=== PATIENT | male | born 1980 | race Caucasian/White ===

== ENCOUNTER 2017-05-13 18:56 | Emergency (ER) | payer SELFPAY ==
[2017-05-13 19:06] VITALS: BMI 4865.0
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
[2017-05-13 22:26] VITALS: BP 137/77
== END 2017-05-13 22:20 | disposition home or self-care (01) ==
LOC: ER 19:10
DX: S21.93XA Puncture wound without foreign body of unspecified part of thorax, initial encounter (principal); W29.4XXA Contact with nail gun, initial encounter; Y92.9 Unspecified place or not applicable
CPT/HCPCS: 71020; 99282

== ENCOUNTER 2021-07-01 16:26 | Observation (INO) ==
[2021-07-01] MEDS ORDERED: PHARMACY CONSULT - VANCOMYCIN XX SCH (19:00)
[2021-07-01] MEDS: NS 1,000 ML IV 1,000 ML IV SCH (20:01)
[2021-07-01 21:11] VITALS: BMI 28.7
[2021-07-01] MEDS ORDERED: TORADOL 30 MG VIAL ONE (21:16)
[2021-07-01] MEDS ORDERED: TYLENOL 325 MG TAB PO ONE (21:16)
[2021-07-01] MEDS: TORADOL 30 MG VIAL IVP PRN (21:22)
[2021-07-01] MEDS: TYLENOL 325 MG TAB PO PRN (21:23)
[2021-07-01] MEDS ORDERED: VANCOMYCIN IV *PREMIX 1.75 G/350 ML BAG 1.75 G/350 ML PIGGYBACK IV ONE (22:00)
[2021-07-01 22:50] LABS: BASOPHILS # (AUTO) 0.1 X10^3/uL (0.0-0.1); BASOPHILS % (AUTO) 0.5 % (0.2-1.0); EOSINOPHILS % (AUTO) 0.3 % (0.9-2.9); HEMATOCRIT 36.2 % (42.0-54.0); HEMOGLOBIN 12.4 g/dL (13.5-18.0); LYMPHOCYTES # (AUTO) 2.8 X10^3/uL (1.3-2.9); LYMPHOCYTES % (AUTO) 15.8 % (21.0-51.0); MEAN CORPUSCULAR HEMOGLOBIN 30.1 pg (27.0-34.0); MEAN CORPUSCULAR HGB CONC 34.2 g/dL (33.0-35.0); MEAN PLATELET VOLUME 11.1 fL (7.4-11.0); MONOCYTES # (AUTO) 1.2 x10^3/uL (0.3-0.8); MONOCYTES % (AUTO) 6.7 % (0.0-13.0); NEUTROPHILS # (AUTO) 13.8 x10^3/uL (2.2-4.8); NEUTROPHILS % (AUTO) 76.7 % (42.0-75.0); RED BLOOD COUNT 4.11 X10^6/uL (4.7-6.0)
[2021-07-01 23:02] LABS: ALANINE AMINOTRANSFERASE 40 Units/L (12-78); ALBUMIN 3.4 g/dL (3.4-5.0); ALKALINE PHOSPHATASE 72 Units/L (46-116); ASPARTATE AMINO TRANSFERASE 26 Units/L (15-37); BLOOD UREA NITROGEN 17 mg/dL (7-18); CALCIUM 8.1 mg/dL (8.5-10.1); CARBON DIOXIDE 24.9 mmol/L (21-32); CHLORIDE 100 mmol/L (98-107); COR NA(FOR HYPERGLY) 132 mmol/L (136-145); CREATININE 1.39 mg/dL (0.70-1.30); SODIUM 131 mmol/L (136-145); TOTAL PROTEIN 7.6 g/dL (6.4-8.2); eGFR NON BLACK RACES 60 (>60)
[2021-07-01 23:46] LABS: BILIRUBIN,URINE NEGATIVE (NEGATIVE); BLOOD/HEMOGLOBIN,URINE 1+ (NEGATIVE); GLUCOSE, URINE NEGATIVE (NEGATIVE); KETONES,URINE NEGATIVE (NEGATIVE); LEUKOCYTE ESTERASE ,URINE NEGATIVE (NEGATIVE); NITRITES,URINE NEGATIVE (NEGATIVE); PROTEIN,URINE 1+ (NEGATIVE); UROBILINOGEN,URINE NORMAL (NORMAL)
[2021-07-01 23:49] LABS: APPEARANCE,URINE CLEAR (CLEAR); BACTERIA,URINE NEGATIVE /HPF (NEGATIVE); COLOR,URINE YELLOW (YELLOW); RBC,URINE NONE SEEN /HPF (0-3); SQUAMOUS EPITHELIAL CELL,UR RARE /HPF (NEGATIVE)
[2021-07-02] MEDS: TYLENOL 325 MG TAB PO PRN ×2 (05:33→14:50)
[2021-07-02 06:24] LABS: BASOPHILS % (AUTO) 0.2 % (0.2-1.0); EOSINOPHILS % (AUTO) 0.3 % (0.9-2.9); HEMATOCRIT 32.7 % (42.0-54.0); HEMOGLOBIN 11.1 g/dL (13.5-18.0); LYMPHOCYTES # (AUTO) 1.8 X10^3/uL (1.3-2.9); MEAN CORPUSCULAR HEMOGLOBIN 29.9 pg (27.0-34.0); MEAN CORPUSCULAR VOLUME 87.8 fL (80.0-100.0); MEAN PLATELET VOLUME 10.1 fL (7.4-11.0); MONOCYTES # (AUTO) 1.1 x10^3/uL (0.3-0.8); MONOCYTES % (AUTO) 6.9 % (0.0-13.0); NEUTROPHILS # (AUTO) 13.5 x10^3/uL (2.2-4.8); NEUTROPHILS % (AUTO) 81.6 % (42.0-75.0); RED BLOOD COUNT 3.73 X10^6/uL (4.7-6.0); RED CELL DISTRIBUTION WIDTH 13.3 % (11.6-16.5); WHITE BLOOD COUNT 16.5 X10^3/uL (3.6-10.0)
[2021-07-02 06:37] LABS: ALANINE AMINOTRANSFERASE 47 Units/L (12-78); ALBUMIN 2.8 g/dL (3.4-5.0); ALKALINE PHOSPHATASE 77 Units/L (46-116); ASPARTATE AMINO TRANSFERASE 36 Units/L (15-37); BLOOD UREA NITROGEN 13 mg/dL (7-18); CALCIUM 7.9 mg/dL (8.5-10.1); CARBON DIOXIDE 26.7 mmol/L (21-32); CHLORIDE 104 mmol/L (98-107); COR CA(FOR HYPOALB) 8.9 mg/dL (8.5-10.1); COR NA(FOR HYPERGLY) 139 mmol/L (136-145); CREATININE 1.19 mg/dL (0.70-1.30); SODIUM 138 mmol/L (136-145); TOTAL PROTEIN 6.7 g/dL (6.4-8.2); eGFR NON BLACK RACES > 60 (>60)
[2021-07-02] MEDS: NICOTINE PATCH TD SCH (08:08)
[2021-07-02] MEDS: VANCOMYCIN IV *PREMIX 1.25 G/250 ML BAG 1.25 G/250 ML PIGGYBACK IV SCH ×2 (08:08→21:07)
--- NOTE | 2021-07-02 08:39 | DR.H&P ---
H&P - History & Physical for Day of: H&P Date: 07/01/21 - Chief Complaint Chief Complaint: ABSCESS TO RIGHT INNER THIGH, FEVER, CHILLS, NAUSEA - History of Present Illness History of Present Illness: PT IS 40 WM DIRECT ADMIT FROM DR KRISHNAMURTHY OFFICE WITH CO ABSCESS TO RIGHT UPPER THIGH WITH REDNESS INTO GROIN AND DOWN RIGHT THIGH, DRAINING PURULENT DC AND FEVER 101.2 IN OFFICE. PT REPORTS "CYST" STARTED LAST WEDNESDAY AND DAINING "PUS". PT HAS BEEN ON PO CLINDAMYCIN AND AMOXIL FOR DENTAL INFECTION. PT REPORTS HE HAD TOP TEETH PULLED WITH DENTURE PLATE IN PLACE ON WEDNESDAY, MINIMAL SWELLING. PT HAS PMH OF OPIOID DEPENDENCE IN REMISSION, ON S UBUTEX. PT ADMITTED FOR TREATMENT OF ACUTE ILLNESS. - Past Medical History Past Medical History: Kidney Stones - Past Surgical History Surgical History: No History - Family History Family Medical History: Cancer - Social History Does patient currently use any type of tobacco product: Yes Have you used tobacco products in the last 12 months: Yes Type of Tobacco Use: Cigarettes How many years tobacco product used: 8 Does any household member use tobacco: Yes Alcohol Use: None Drug Use: None Prescription drug monitoring program results: PDMP reviewed and no concerns identified - Medications Home Medications: No Known Drug Allergies Allergy (Verified 08/18/19 07:15) CONTINUE taking the following medications amoxicillin 500 mg PO Q6H 07/01/21 [History] ibuprofen 800 mg PO Q8H PRN 07/01/21 [History] latanoprost 1 drp OPHTHALMIC (EYE) DAILY 07/01/21 [History] - Review of Systems Constitutional: Fever, Chills, Malaise Eyes: No Symptoms Reported ENT: Other (UPPER PLATE IN PLACE) Respiratory: No Symptoms Reported Cardiovascular: No Symptoms Reported Gastrointestinal: Nausea Genitourinary: No Symptoms Reported Musculoskeletal: Leg Pain Skin: Wound Neurological: No Symptoms Reported - Physical Exam Vital Signs: Temperature 99.8 F Pulse Rate [Left Radial] 94 Respiratory Rate 19 Blood Pressure [Left Arm] 119/59 O2 Sat by Pulse Oximetry 95 Oriented: Normal Eyes: Normal Ear: Normal Nose: Normal Throat: Normal Respiratory: Clear Throughout Cardiovascular: Normal : Normal Auscultation: Bowel Sounds: Normal Palpation: Normal Tenderness: Normal Skin: Red, Tender, Hot, Wound (LARGE AREA OF REDNESS TO RIGHT UPPER THIGH, INNER THIGH INTO GROIN AND ABSCESS FORMATION WITH PURULENT DC) Musculoskeletal: Right, Leg Psychiatric: Anxiety Affect: Anxious Speech Pattern: Clear, Appropriate - Assessment/Plan (1) Cellulitis of right thigh Status: Acute Plan: ADMIT, WOUND AND BLOOD CULTURES ON ADMISSION. IV HYDRATION, FEVER CONTROL. PAIN CONTROL, IV VANCOMYCIN. VERIFY HOME MEDICATION (2) Dehydration with hyponatremia Status: Acute (3) Fever Status: Acute - Allergies Allergies/Adverse Reactions: Allergies Allergy/AdvReac Type Severity Reaction Status Date / Time No Known Drug Allergies Allergy Verified 08/18/19 07:15
[2021-07-02] MEDS: NS 1,000 ML IV 1,000 ML IV SCH ×3 (08:59→23:49)
[2021-07-02] MEDS ORDERED: VANCOMYCIN HCL 1 G in D5W 250 ML IV 250 ML IV SCH (09:00)
[2021-07-02] MEDS: XALATAN OP SCH (09:17)
[2021-07-02] MEDS: SUBOXONE TAB SL SCH ×3 (10:01→21:07)
[2021-07-02] MEDS: TORADOL 30 MG VIAL IVP PRN (10:08)
--- NOTE | 2021-07-02 13:13 | PCM.PROG ---
Progress Note - Subjective Subjective: Patient was admitted as per HPI. Patient reports minimal improvement. Patient receiving IV abx, cultures pending, no major changes from previous. - Past Medical Family Social History Past Med/Fam/Surg Hx: No changes since H&P Allergies: Allergies No Known Drug Allergies Allergy (Verified 08/18/19 07:15) - Review of Systems ROS: No change since H&P - Vital Signs and I&O's Vital Signs: Temperature 98.9 F Pulse Rate [Left Radial] 87 Respiratory Rate 20 Blood Pressure [Left Arm] 100/62 O2 Sat by Pulse Oximetry 96 Intake and Output: Intake & Output 06/29/21 06/30/21 07/01/21 07/02/21 23:59 23:59 23:59 23:59 Intake Total 700 / 700 1096 / 1096 Output Total 660 / 660 Balance 700 / 700 436 / 436 - Physical Exam Oriented: Normal, Time, Person, Place Eyes: Normal Ear: Normal Nose: Normal Throat: Normal Respiratory: Normal Cardiovascular: Normal : Normal Auscultation: Bowel Sounds: Normal Palpation: Normal Tenderness: Normal Skin: Red, Tender, Hot, Wound (LARGE AREA OF REDNESS TO RIGHT UPPER THIGH, INNER THIGH INTO GROIN AND ABSCESS FORMATION WITH PURULENT DC) Musculoskeletal: Right, Leg Psychiatric: Normal Mood Description: Calm Affect: Normal Speech Pattern: Clear, Appropriate - Laboratory and Diagnostics Result Diagrams: 07/02/21 06:05 07/02/21 06:05 Labs: 07/01/21 20:45 Thigh - Right Wound Gram Stain - Final Laboratory WBC 16.5 X10^3/uL (3.6-10.0) H 07/02/21 06:05 RBC 3.73 X10^6/uL (4.7-6.0) L 07/02/21 06:05 Hgb 11.1 g/dL (13.5-18.0) L 07/02/21 06:05 Hct 32.7 % (42.0-54.0) L 07/02/21 06:05 MCV 87.8 fL (80.0-100.0) 07/02/21 06:05 MCH 29.9 pg (27.0-34.0) 07/02/21 06:05 MCHC 34.0 g/dL (33.0-35.0) 07/02/21 06:05 RDW 13.3 % (11.6-16.5) 07/02/21 06:05 Plt Count 144 X10^3/uL (150.0-450.0) L 07/02/21 06:05 MPV 10.1 fL (7.4-11.0) 07/02/21 06:05 Neut % (Auto) 81.6 % (42.0-75.0) H 07/02/21 06:05 Lymph % (Auto) 11.0 % (21.0-51.0) L 07/02/21 06:05 [place] % (Auto) 6.9 % (0.0-13.0) 07/02/21 06:05 Eos % (Auto) 0.3 % (0.9-2.9) L 07/02/21 06:05 Baso % (Auto) 0.2 % (0.2-1.0) 07/02/21 06:05 Neut # (Auto) 13.5 x10^3/uL (2.2-4.8) H 07/02/21 06:05 Lymph # (Auto) 1.8 X10^3/uL (1.3-2.9) 07/02/21 06:05 [place] # (Auto) 1.1 x10^3/uL (0.3-0.8) H 07/02/21 06:05 Eos # (Auto) 0.0 x10^3/uL (0.0-0.2) 07/02/21 06:05 Baso # (Auto) 0.0 X10^3/uL (0.0-0.1) 07/02/21 06:05 Absolute Nucleated RBC 0.0 /100WBC 07/02/21 06:05 Sodium 138 mmol/L (136-145) 07/02/21 06:05 Corrected Sodium 139 mmol/L (136-145) 07/02/21 06:05 Potassium 4.1 mmol/L (3.5-5.1) 07/02/21 06:05 Chloride 104 mmol/L (98-107) 07/02/21 06:05 Carbon Dioxide 26.7 mmol/L (21-32) 07/02/21 06:05 BUN 13 mg/dL (7-18) 07/02/21 06:05 Creatinine 1.19 mg/dL (0.70-1.30) 07/02/21 06:05 Est GFR (MDRD) Af Amer > 60 (>60) 07/02/21 06:05 Est GFR (MDRD) Non-Af > 60 (>60) 07/02/21 06:05 Glucose 151 mg/dL (65-99) H 07/02/21 06:05 Calcium 7.9 mg/dL (8.5-10.1) L 07/02/21 06:05 Corrected Calcium 8.9 mg/dL (8.5-10.1) 07/02/21 06:05 Total Bilirubin 0.80 mg/dL (0.2-1.0) 07/02/21 06:05 AST 36 Units/L (15-37) 07/02/21 06:05 ALT 47 Units/L (12-78) 07/02/21 06:05 Alkaline Phosphatase 77 Units/L (46-116) 07/02/21 06:05 Total Protein 6.7 g/dL (6.4-8.2) 07/02/21 06:05 Albumin 2.8 g/dL (3.4-5.0) L 07/02/21 06:05 Globulin 3.9 g/dL (2.5-4.5) 07/02/21 06:05 Albumin/Globulin Ratio 0.7 Ratio (1.1-2.1) L 07/02/21 06:05 Specimen Type Clean catch urine 07/01/21 23:20 Urine Color Yellow (YELLOW) 07/01/21 23:20 Urine Appearance Clear (CLEAR) 07/01/21 23:20 Urine pH 5.0 (5.0 - 8.0) 07/01/21 23:20 Ur Specific [place] 1.025 (1.000-1.030) 07/01/21 23:20 Urine Protein 1+ (NEGATIVE) 07/01/21 23:20 Urine Glucose (UA) Negative (NEGATIVE) 07/01/21 23:20 Urine Ketones Negative (NEGATIVE) 07/01/21 23:20 Urine Occult Blood 1+ (NEGATIVE) 07/01/21 23:20 Urine Nitrite Negative (NEGATIVE) 07/01/21 23:20 Urine Bilirubin Negative (NEGATIVE) 02/01/22 23:20 Urine Urobilinogen Normal (NORMAL) 07/01/21 23:20 Ur Leukocyte Esterase Negative (NEGATIVE) 07/01/21 23:20 Urine RBC None seen /HPF (0-3) 07/01/21 23:20 Urine WBC 0-2 /HPF (0-5) 07/01/21 23:20 Ur Squamous Epith Cells Rare /HPF (NEGATIVE) 07/01/21 23:20 Urine Bacteria Negative /HPF (NEGATIVE) 07/01/21 23:20 Ur Culture Indicated? Yes/culture set up 07/01/21 23:20 SARS CoV-2 RNA Rapid FRITZ Negative (NEGATIVE) 07/01/21 17:19 - Plan (1) Leukocytosis Status: Acute (2) Cellulitis of right thigh Status: Acute Plan: ADMIT, WOUND AND BLOOD CULTURES ON ADMISSION. IV HYDRATION, FEVER CONTROL. PAIN CONTROL, IV VANCOMYCIN (3) Fever Status: Acute (4) Dehydration with hyponatremia Status: Acute
[2021-07-03] MEDS: SUBOXONE TAB SL SCH ×4 (03:18→21:13)
[2021-07-03] MEDS: TORADOL 30 MG VIAL IVP PRN ×2 (04:04→20:17)
[2021-07-03] MEDS: TYLENOL 325 MG TAB PO PRN (04:05)
[2021-07-03 06:12] LABS: ALANINE AMINOTRANSFERASE 59 Units/L (12-78); ALBUMIN 2.6 g/dL (3.4-5.0); ALKALINE PHOSPHATASE 95 Units/L (46-116); ASPARTATE AMINO TRANSFERASE 39 Units/L (15-37); BLOOD UREA NITROGEN 10 mg/dL (7-18); CALCIUM 8.4 mg/dL (8.5-10.1); CHLORIDE 105 mmol/L (98-107); COR CA(FOR HYPOALB) 9.5 mg/dL (8.5-10.1); CREATININE 0.98 mg/dL (0.70-1.30); SODIUM 139 mmol/L (136-145); TOTAL PROTEIN 6.6 g/dL (6.4-8.2); eGFR NON BLACK RACES > 60 (>60)
[2021-07-03 06:15] LABS: BASOPHILS % (AUTO) 0.2 % (0.2-1.0); EOSINOPHILS # (AUTO) 0.2 x10^3/uL (0.0-0.2); EOSINOPHILS % (AUTO) 1.2 % (0.9-2.9); HEMATOCRIT 30.6 % (42.0-54.0); HEMOGLOBIN 10.5 g/dL (13.5-18.0); LYMPHOCYTES # (AUTO) 2.7 X10^3/uL (1.3-2.9); MEAN CORPUSCULAR HEMOGLOBIN 30.2 pg (27.0-34.0); MEAN CORPUSCULAR HGB CONC 34.3 g/dL (33.0-35.0); MEAN CORPUSCULAR VOLUME 87.9 fL (80.0-100.0); MEAN PLATELET VOLUME 10.1 fL (7.4-11.0); MONOCYTES # (AUTO) 1.3 x10^3/uL (0.3-0.8); NEUTROPHILS # (AUTO) 9.8 x10^3/uL (2.2-4.8); NEUTROPHILS % (AUTO) 70.6 % (42.0-75.0); RED BLOOD COUNT 3.48 X10^6/uL (4.7-6.0); RED CELL DISTRIBUTION WIDTH 12.9 % (11.6-16.5); WHITE BLOOD COUNT 13.9 X10^3/uL (3.6-10.0)
[2021-07-03] MEDS: VANCOMYCIN IV *PREMIX 1.25 G/250 ML BAG 1.25 G/250 ML PIGGYBACK IV SCH ×2 (09:27→21:48)
[2021-07-03] MEDS: NICOTINE PATCH TD SCH (09:27)
[2021-07-03] MEDS: COLACE CAP 100 MG PO SCH ×2 (09:27→20:17)
[2021-07-03] MEDS: XALATAN OP SCH (09:32)
--- NOTE | 2021-07-03 13:29 | PCM.PROG ---
Progress Note - Subjective Subjective: Patient was admitted as per HPI. Patient reports improvement. Patient receiving IV abx, cultures pending, no major changes from previous. Cellulitis appears improved. - Past Medical Family Social History Past Med/Fam/Surg Hx: No changes since H&P Allergies: Allergies No Known Drug Allergies Allergy (Verified 08/18/19 07:15) - Review of Systems ROS: No change since H&P - Vital Signs and I&O's Vital Signs: Temperature 99.5 F Pulse Rate [Left Radial] 78 Respiratory Rate 16 Blood Pressure [Left Arm] 129/60 O2 Sat by Pulse Oximetry 97 Intake and Output: Intake & Output 06/30/21 07/01/21 07/02/21 07/03/21 23:59 23:59 23:59 23:59 Intake Total 700 / 700 3841 / 3841 856 / 856 Output Total 1560 / 1560 1050 / 1050 Balance 700 / 700 2281 / 2281 -194 / -194 - Physical Exam Oriented: Normal, Time, Person, Place Eyes: Normal Ear: Normal Nose: Normal Throat: Normal Respiratory: Normal Cardiovascular: Normal : Normal Auscultation: Bowel Sounds: Normal Palpation: Normal Tenderness: Normal Skin: Red, Tender, Hot, Wound (LARGE AREA OF REDNESS TO RIGHT UPPER THIGH, INNER THIGH INTO GROIN AND ABSCESS FORMATION WITH PURULENT DC) Musculoskeletal: Right, Leg Psychiatric: Normal Mood Description: Calm Affect: Normal Speech Pattern: Clear, Appropriate - Laboratory and Diagnostics Result Diagrams: 07/03/21 05:25 07/03/21 05:25 Labs: 07/01/21 18:30 Blood Blood Culture - Preliminary 07/01/21 18:25 Blood Blood Culture - Preliminary 07/01/21 23:20 Urine,Clean Catch Urine Culture - Preliminary 07/01/21 20:45 Thigh - Right Wound Gram Stain - Final 07/01/21 20:45 Thigh - Right Wound Culture - Preliminary Laboratory WBC 13.9 X10^3/uL (3.6-10.0) H 07/03/21 05:25 RBC 3.48 X10^6/uL (4.7-6.0) L 07/03/21 05:25 Hgb 10.5 g/dL (13.5-18.0) L 07/03/21 05:25 Hct 30.6 % (42.0-54.0) L 07/03/21 05:25 MCV 87.9 fL (80.0-100.0) 07/03/21 05:25 MCH 30.2 pg (27.0-34.0) 07/03/21 05:25 MCHC 34.3 g/dL (33.0-35.0) 07/03/21 05:25 RDW 12.9 % (11.6-16.5) 07/03/21 05:25 Plt Count 139 X10^3/uL (150.0-450.0) L 07/03/21 05:25 MPV 10.1 fL (7.4-11.0) 07/03/21 05:25 Neut % (Auto) 70.6 % (42.0-75.0) 07/03/21 05:25 Lymph % (Auto) 19.0 % (21.0-51.0) L 07/03/21 05:25 [place] % (Auto) 9.0 % (0.0-13.0) 07/03/21 05:25 Eos % (Auto) 1.2 % (0.9-2.9) 07/03/21 05:25 Baso % (Auto) 0.2 % (0.2-1.0) 07/03/21 05:25 Neut # (Auto) 9.8 x10^3/uL (2.2-4.8) H 07/03/21 05:25 Lymph # (Auto) 2.7 X10^3/uL (1.3-2.9) 07/03/21 05:25 [place] # (Auto) 1.3 x10^3/uL (0.3-0.8) H 07/03/21 05:25 Eos # (Auto) 0.2 x10^3/uL (0.0-0.2) 07/03/21 05:25 Baso # (Auto) 0.0 X10^3/uL (0.0-0.1) 07/03/21 05:25 Absolute Nucleated RBC 0.0 /100WBC 07/03/21 05:25 Sodium 139 mmol/L (136-145) 07/03/21 05:25 Corrected Sodium TNP 07/03/21 05:25 Potassium 4.4 mmol/L (3.5-5.1) 07/03/21 05:25 Chloride 105 mmol/L (98-107) 07/03/21 05:25 Carbon Dioxide 28.0 mmol/L (21-32) 07/03/21 05:25 BUN 10 mg/dL (7-18) 07/03/21 05:25 Creatinine 0.98 mg/dL (0.70-1.30) 07/03/21 05:25 Est GFR (MDRD) Af Amer > 60 (>60) 07/03/21 05:25 Est GFR (MDRD) Non-Af > 60 (>60) 07/03/21 05:25 Glucose 103 mg/dL (65-99) H 07/03/21 05:25 Calcium 8.4 mg/dL (8.5-10.1) L 07/03/21 05:25 Corrected Calcium 9.5 mg/dL (8.5-10.1) 07/03/21 05:25 Total Bilirubin 0.80 mg/dL (0.2-1.0) 07/03/21 05:25 AST 39 Units/L (15-37) H 07/03/21 05:25 ALT 59 Units/L (12-78) 07/03/21 05:25 Alkaline Phosphatase 95 Units/L (46-116) 07/03/21 05:25 Total Protein 6.6 g/dL (6.4-8.2) 07/03/21 05:25 Albumin 2.6 g/dL (3.4-5.0) L 07/03/21 05:25 Globulin 4.0 g/dL (2.5-4.5) 07/03/21 05:25 Albumin/Globulin Ratio 0.7 Ratio (1.1-2.1) L 07/03/21 05:25 Specimen Type Clean catch urine 07/01/21 23:20 Urine Color Yellow (YELLOW) 07/01/21 23:20 Urine Appearance Clear (CLEAR) 07/01/21 23:20 Urine pH 5.0 (5.0 - 8.0) 07/01/21 23:20 Ur Specific [place] 1.025 (1.000-1.030) 07/01/21 23:20 Urine Protein 1+ (NEGATIVE) 07/01/21 23:20 Urine Glucose (UA) Negative (NEGATIVE) 07/01/21 23:20 Urine Ketones Negative (NEGATIVE) 07/01/21 23:20 Urine Occult Blood 1+ (NEGATIVE) 07/01/21 23:20 Urine Nitrite Negative (NEGATIVE) 07/01/21 23:20 Urine Bilirubin Negative (NEGATIVE) 07/01/21 23:20 Urine Urobilinogen Normal (NORMAL) 07/01/21 23:20 Ur Leukocyte Esterase Negative (NEGATIVE) 07/01/21 23:20 Urine RBC None seen /HPF (0-3) 07/01/21 23:20 Urine WBC 0-2 /HPF (0-5) 07/01/21 23:20 Ur Squamous Epith Cells Rare /HPF (NEGATIVE) 07/01/21 23:20 Urine Bacteria Negative /HPF (NEGATIVE) 07/01/21 23:20 Ur Culture Indicated? Yes/culture set up 07/01/21 23:20 SARS CoV-2 RNA Rapid FRITZ Negative (NEGATIVE) 07/01/21 17:19 - Plan (1) Leukocytosis Status: Acute (2) Cellulitis of right thigh Status: Acute Plan: WOUND AND BLOOD CULTURES ON ADMISSION. IV HYDRATION, FEVER CONTROL. PAIN CONTROL, IV VANCOMYCIN (3) Fever Status: Acute (4) Dehydration with hyponatremia Status: Acute
--- NOTE | 2021-07-03 13:30 | US ---
HISTORYSwelling right eyeSTUDYUltrasound soft tissues right thigh, two-dimensional ultrasound is performed of the soft tissues of the right thigh with image documentation.COMPARISONNoneFINDINGSSoft tissue edema is seen throughout the right thigh. There is likely a poorly formed fluid collection in the right-side measuring greater than 3.0 x 1.3 cm. This could be a poorly formed abscess or developing abscess. No increased vascularity is seen.IMPRESSIONEdema and a fluid collection are seen in the right thigh. Fluid collection is concerning for a poorly formed abscess/developing abscess.Electronically signed by: Ramesh Cuadra (Jul 03, 2021 13:29:30)
[2021-07-03] MEDS: NS 1,000 ML IV 1,000 ML IV SCH ×2 (13:36→17:24)
[2021-07-03] MEDS ORDERED: PHARMACY COMMENT IV NR (20:30)
[2021-07-03 21:42] LABS: CREATININE 0.95 mg/dL (0.70-1.30); VANCOMYCIN,TROUGH 9.9 ug/mL (15-20)
--- NOTE | 2021-07-03 22:00 | CT ---
CT right lower extremity without contrast-thighIndication: Evaluate for abscessCOMPARISONSonogram from the same dayTECHNIQUEHelical images through the right lower extremity from the lower aspect of the right SI joint to just below the femorotibial joint. Coronal and sagittal reformats provided.FINDINGS: There is subcutaneous soft tissue swelling in the left inguinal region, with few shotty lymph nodes noted, tracking down the anterior medial left thigh, see axial images 68 through 93 with skin marker seen on axial image 88. This relatively dense collection measures 1.6 x 5.5 x 3.4 cm on axial image 33 and sagittal image 32 (AP, trans, cc). Developing abscess is favored, although lack contrast limits further characterization. Phlegmon and cellulitis would appear similar.The deep muscular soft tissues appear normal. The knee joint appears intact without large effusion. Neurovascular structures are normal. Visualized pelvic structures show no unexpected abnormality.Vacuum phenomenon seen at the right SI joint suggesting minimal DJD. Minimal symphysis pubis DJD noted. The right hip joint is intact without cortical lucency or malalignment.IMPRESSION1. Subcutaneous soft tissue fat inflammation in the proximal medial right thigh, extending towards the right groin which shotty lymph nodes. Developing abscess versus phlegmon favored.2. No other acute abnormality seenElectronically signed by: KALYANI KELLEY (Jul 03, 2021 21:59:20)
[2021-07-04] MEDS: NS 1,000 ML IV 1,000 ML IV SCH ×3 (03:36→17:43)
[2021-07-04] MEDS: SUBOXONE TAB SL SCH ×5 (03:37→21:58)
[2021-07-04 06:17] LABS: BASOPHILS # (AUTO) 0.1 X10^3/uL (0.0-0.1); BASOPHILS % (AUTO) 0.7 % (0.2-1.0); EOSINOPHILS # (AUTO) 0.3 x10^3/uL (0.0-0.2); EOSINOPHILS % (AUTO) 3.1 % (0.9-2.9); HEMATOCRIT 31.1 % (42.0-54.0); HEMOGLOBIN 10.8 g/dL (13.5-18.0); LYMPHOCYTES % (AUTO) 32.6 % (21.0-51.0); MEAN CORPUSCULAR HEMOGLOBIN 30.2 pg (27.0-34.0); MEAN CORPUSCULAR HGB CONC 34.6 g/dL (33.0-35.0); MEAN CORPUSCULAR VOLUME 87.3 fL (80.0-100.0); MEAN PLATELET VOLUME 10.3 fL (7.4-11.0); MONOCYTES # (AUTO) 0.9 x10^3/uL (0.3-0.8); MONOCYTES % (AUTO) 10.1 % (0.0-13.0); NEUTROPHILS # (AUTO) 4.9 x10^3/uL (2.2-4.8); NEUTROPHILS % (AUTO) 53.5 % (42.0-75.0); RED BLOOD COUNT 3.56 X10^6/uL (4.7-6.0); RED CELL DISTRIBUTION WIDTH 12.6 % (11.6-16.5); WHITE BLOOD COUNT 9.1 X10^3/uL (3.6-10.0)
[2021-07-04 07:09] LABS: ALANINE AMINOTRANSFERASE 53 Units/L (12-78); ALBUMIN 2.5 g/dL (3.4-5.0); ALKALINE PHOSPHATASE 115 Units/L (46-116); ASPARTATE AMINO TRANSFERASE 27 Units/L (15-37); BLOOD UREA NITROGEN 9 mg/dL (7-18); CALCIUM 8.6 mg/dL (8.5-10.1); CARBON DIOXIDE 25.9 mmol/L (21-32); CHLORIDE 105 mmol/L (98-107); COR CA(FOR HYPOALB) 9.8 mg/dL (8.5-10.1); CREATININE 0.85 mg/dL (0.70-1.30); SODIUM 137 mmol/L (136-145); TOTAL PROTEIN 6.6 g/dL (6.4-8.2); eGFR NON BLACK RACES > 60 (>60)
[2021-07-04] MEDS: VANCOMYCIN IV *PREMIX 1.5 G/300 ML BAG 1.5 G/300 ML PIGGYBACK IV SCH ×2 (08:23→22:00)
[2021-07-04] MEDS: XALATAN OP SCH (08:23)
[2021-07-04] MEDS: NICOTINE PATCH TD SCH (08:23)
--- NOTE | 2021-07-04 12:13 | PCM.PROG ---
Progress Note - Subjective Subjective: Patient was admitted as per HPI. Patient reports improvement. Patient receiving IV abx, cultures pending, no major changes from previous. Surface area of Cellulitis appears improved and less however there appears to be a possible abscess. Consulting general surgery. - Past Medical Family Social History Past Med/Fam/Surg Hx: No changes since H&P Allergies: Allergies No Known Drug Allergies Allergy (Verified 08/18/19 07:15) - Review of Systems ROS: No change since H&P - Vital Signs and I&O's Vital Signs: Temperature 98.9 F Pulse Rate [Left Radial] 74 Respiratory Rate 20 Blood Pressure [Left Arm] 133/73 O2 Sat by Pulse Oximetry 96 Intake and Output: Intake & Output 07/01/21 07/02/21 07/03/21 07/04/21 23:59 23:59 23:59 23:59 Intake Total 700 / 700 3841 / 3841 2982 / 2982 875 / 875 Output Total 1560 / 1560 2150 / 2150 1100 / 1100 Balance 700 / 700 2281 / 2281 832 / 832 -225 / -225 - Physical Exam Oriented: Normal, Time, Person, Place Eyes: Normal Ear: Normal Nose: Normal Throat: Normal Respiratory: Normal Cardiovascular: Normal : Normal Auscultation: Bowel Sounds: Normal Palpation: Normal Tenderness: Normal Skin: Red, Tender, Hot, Wound (LARGE AREA OF REDNESS TO RIGHT UPPER THIGH, INNER THIGH INTO GROIN AND ABSCESS FORMATION WITH PURULENT DC) Musculoskeletal: Right, Leg Psychiatric: Normal Mood Description: Calm Affect: Normal Speech Pattern: Clear, Appropriate - Laboratory and Diagnostics Result Diagrams: 07/04/21 05:55 07/04/21 05:55 Labs: 07/01/21 20:45 Thigh - Right Wound Gram Stain - Final 07/01/21 20:45 Thigh - Right Wound Culture - Final Methicillin Resis Staph Aureus 07/01/21 18:30 Blood Blood Culture - Preliminary 07/01/21 18:25 Blood Blood Culture - Preliminary 07/01/21 23:20 Urine,Clean Catch Urine Culture - Preliminary Laboratory WBC 9.1 X10^3/uL (3.6-10.0) 07/04/21 05:55 RBC 3.56 X10^6/uL (4.7-6.0) L 07/04/21 05:55 Hgb 10.8 g/dL (13.5-18.0) L 07/04/21 05:55 Hct 31.1 % (42.0-54.0) L 07/04/21 05:55 MCV 87.3 fL (80.0-100.0) 07/04/21 05:55 MCH 30.2 pg (27.0-34.0) 07/04/21 05:55 MCHC 34.6 g/dL (33.0-35.0) 07/04/21 05:55 RDW 12.6 % (11.6-16.5) 07/04/21 05:55 Plt Count 153 X10^3/uL (150.0-450.0) 07/04/21 05:55 MPV 10.3 fL (7.4-11.0) 07/04/21 05:55 Neut % (Auto) 53.5 % (42.0-75.0) 07/04/21 05:55 Lymph % (Auto) 32.6 % (21.0-51.0) 07/04/21 05:55 [place] % (Auto) 10.1 % (0.0-13.0) 07/04/21 05:55 Eos % (Auto) 3.1 % (0.9-2.9) H 07/04/21 05:55 Baso % (Auto) 0.7 % (0.2-1.0) 07/04/21 05:55 Neut # (Auto) 4.9 x10^3/uL (2.2-4.8) H 07/04/21 05:55 Lymph # (Auto) 3.0 X10^3/uL (1.3-2.9) H 07/04/21 05:55 [place] # (Auto) 0.9 x10^3/uL (0.3-0.8) H 07/04/21 05:55 Eos # (Auto) 0.3 x10^3/uL (0.0-0.2) H 07/04/21 05:55 Baso # (Auto) 0.1 X10^3/uL (0.0-0.1) 07/04/21 05:55 Absolute Nucleated RBC 0.0 /100WBC 07/04/21 05:55 Sodium 137 mmol/L (136-145) 07/04/21 05:55 Corrected Sodium TNP 07/04/21 05:55 Potassium 4.0 mmol/L (3.5-5.1) 07/04/21 05:55 Chloride 105 mmol/L (98-107) 07/04/21 05:55 Carbon Dioxide 25.9 mmol/L (21-32) 07/04/21 05:55 BUN 9 mg/dL (7-18) 07/04/21 05:55 Creatinine 0.85 mg/dL (0.70-1.30) 07/04/21 05:55 Est GFR (MDRD) Af Amer > 60 (>60) 07/04/21 05:55 Est GFR (MDRD) Non-Af > 60 (>60) 07/04/21 05:55 Glucose 92 mg/dL (65-99) 07/04/21 05:55 Calcium 8.6 mg/dL (8.5-10.1) 07/04/21 05:55 Corrected Calcium 9.8 mg/dL (8.5-10.1) 07/04/21 05:55 Total Bilirubin 0.70 mg/dL (0.2-1.0) 07/04/21 05:55 AST 27 Units/L (15-37) 07/04/21 05:55 ALT 53 Units/L (12-78) 07/04/21 05:55 Alkaline Phosphatase 115 Units/L (46-116) 07/04/21 05:55 Total Protein 6.6 g/dL (6.4-8.2) 07/04/21 05:55 Albumin 2.5 g/dL (3.4-5.0) L 07/04/21 05:55 Globulin 4.1 g/dL (2.5-4.5) 07/04/21 05:55 Albumin/Globulin Ratio 0.6 Ratio (1.1-2.1) L 07/04/21 05:55 Specimen Type Clean catch urine 07/01/21 23:20 Urine Color Yellow (YELLOW) 07/01/21 23:20 Urine Appearance Clear (CLEAR) 07/01/21 23:20 Urine pH 5.0 (5.0 - 8.0) 07/01/21 23:20 Ur Specific [place] 1.025 (1.000-1.030) 07/01/21 23:20 Urine Protein 1+ (NEGATIVE) 07/01/21 23:20 Urine Glucose (UA) Negative (NEGATIVE) 07/01/21 23:20 Urine Ketones Negative (NEGATIVE) 07/01/21 23:20 Urine Occult Blood 1+ (NEGATIVE) 07/01/21 23:20 Urine Nitrite Negative (NEGATIVE) 07/01/21 23:20 Urine Bilirubin Negative (NEGATIVE) 07/01/21 23:20 Urine Urobilinogen Normal (NORMAL) 07/01/21 23:20 Ur Leukocyte Esterase Negative (NEGATIVE) 07/01/21 23:20 Urine RBC None seen /HPF (0-3) 07/01/21 23:20 Urine WBC 0-2 /HPF (0-5) 07/01/21 23:20 Ur Squamous Epith Cells Rare /HPF (NEGATIVE) 07/01/21 23:20 Urine Bacteria Negative /HPF (NEGATIVE) 07/01/21 23:20 Ur Culture Indicated? Yes/culture set up 07/01/21 23:20 Vancomycin Trough 9.9 ug/mL (15-20) L 07/03/21 21:08 SARS CoV-2 RNA Rapid FRITZ Negative (NEGATIVE) 07/01/21 17:19 - Plan (1) Leukocytosis Status: Acute Plan: Improved (2) Cellulitis of right thigh Status: Acute Plan: WOUND AND BLOOD CULTURES ON ADMISSION. IV HYDRATION, FEVER CONTROL. PAIN CONTROL, IV VANCOMYCIN (3) Fever Status: Acute (4) Dehydration with hyponatremia Status: Acute (5) Abscess of thigh Status: Acute Plan: General surgery consult
[2021-07-04] MEDS: TORADOL 30 MG VIAL IVP PRN (12:33)
[2021-07-04] MEDS: COLACE CAP 100 MG PO SCH (21:58)
[2021-07-04] MEDS: TYLENOL 325 MG TAB PO PRN (21:58)
[2021-07-05] MEDS: SUBOXONE TAB SL SCH ×3 (03:20→14:56)
[2021-07-05] MEDS: NS 1,000 ML IV 1,000 ML IV SCH ×2 (04:42→08:32)
[2021-07-05] MEDS: TORADOL 30 MG VIAL IVP PRN ×2 (04:49→15:16)
[2021-07-05 06:58] LABS: BASOPHILS # (AUTO) 0.1 X10^3/uL (0.0-0.1); EOSINOPHILS # (AUTO) 0.3 x10^3/uL (0.0-0.2); EOSINOPHILS % (AUTO) 3.9 % (0.9-2.9); HEMOGLOBIN 10.9 g/dL (13.5-18.0); LYMPHOCYTES # (AUTO) 2.8 X10^3/uL (1.3-2.9); LYMPHOCYTES % (AUTO) 32.1 % (21.0-51.0); MEAN CORPUSCULAR HEMOGLOBIN 30.8 pg (27.0-34.0); MEAN CORPUSCULAR HGB CONC 35.2 g/dL (33.0-35.0); MEAN CORPUSCULAR VOLUME 87.5 fL (80.0-100.0); MEAN PLATELET VOLUME 10.5 fL (7.4-11.0); MONOCYTES # (AUTO) 0.9 x10^3/uL (0.3-0.8); MONOCYTES % (AUTO) 9.8 % (0.0-13.0); NEUTROPHILS # (AUTO) 4.6 x10^3/uL (2.2-4.8); NEUTROPHILS % (AUTO) 53.2 % (42.0-75.0); RED BLOOD COUNT 3.54 X10^6/uL (4.7-6.0); RED CELL DISTRIBUTION WIDTH 12.5 % (11.6-16.5); WHITE BLOOD COUNT 8.7 X10^3/uL (3.6-10.0)
[2021-07-05 07:16] LABS: ALANINE AMINOTRANSFERASE 46 Units/L (12-78); ALBUMIN 2.6 g/dL (3.4-5.0); ALKALINE PHOSPHATASE 120 Units/L (46-116); ASPARTATE AMINO TRANSFERASE 20 Units/L (15-37); BLOOD UREA NITROGEN 10 mg/dL (7-18); CALCIUM 8.6 mg/dL (8.5-10.1); CARBON DIOXIDE 29.3 mmol/L (21-32); CHLORIDE 102 mmol/L (98-107); COR CA(FOR HYPOALB) 9.7 mg/dL (8.5-10.1); CREATININE 0.89 mg/dL (0.70-1.30); SODIUM 138 mmol/L (136-145); TOTAL PROTEIN 6.9 g/dL (6.4-8.2); eGFR NON BLACK RACES > 60 (>60)
[2021-07-05] MEDS: XALATAN OP SCH (08:30)
[2021-07-05] MEDS: VANCOMYCIN IV *PREMIX 1.5 G/300 ML BAG 1.5 G/300 ML PIGGYBACK IV SCH (08:31)
[2021-07-05] MEDS: NICOTINE PATCH TD SCH (08:31)
[2021-07-05 16:11] VITALS: BP 132/76
[2021-07-05] MEDS ORDERED: PHARMACY COMMENT IV NR (20:30)
== END 2021-07-05 16:20 | disposition home or self-care (01) ==
LOC: MED/SURG → INTOOBSV 16:58 → OBSVTOIN 16:58
PROVIDERS: ADMIT Internal Medicine; ATTEND Internal Medicine